=== PATIENT | male | born 1995 | race Caucasian/White ===

== ENCOUNTER 2020-04-05 19:28 | Emergency (ER) | payer MEDICAID ==
[2020-04-05] MEDS: cefTRIAXone 1 GM VIAL IM STA (20:11)
[2020-04-05] MEDS: KETOROLAC 60 MG/2 ML VIAL IM STA (20:12)
[2020-04-05] MEDS: LIDOCAINE 1% 2 ML VIAL MC ONE (20:12)
[2020-04-05] MEDS: DEXAMETHASONE 10 MG/ML VIAL PO STA (20:12)
--- NOTE | 2020-04-05 20:26 | ED Physician Documentation ---
History of Present Illness - Stated complaint Stated Complaint: MOUTH PAIN - Chief complaint Chief Complaint: Heent - History obtained from History obtained from: Patient - History of Present Illness Timing: Other (2 months ago) Pain level max: 9 Pain level now: 9 - Additonal information Additional information: 25-year-old male presents to the emergency department stating that he has had dental caries and poor dentition for several months. Over the past several days has noticed swelling in pain to the right side of his face. Has an appointment with his dentist next week. Is not currently on antibiotics. No fevers. No chills. No vomiting. Worse with eating and drinking. Nothing makes it better. Review of Systems Ten Systems: 10 systems reviewed and negative Constitutional: denies: Fever, Chills Ears: denies: Ear pain Nose: denies: Rhinorrhea / runny nose, Congestion Throat: denies: Sore throat Cardiac: denies: Chest pain / pressure Respiratory: denies: Dyspnea, Cough GI: denies: Abdominal Pain, Nausea, Vomiting, Diarrhea Skin: denies: Rash Musculoskeletal: denies: Neck pain, Back pain Neurologic: denies: Headache PD PAST MEDICAL HISTORY - Past Medical History Past Medical History: Yes Other Past Medical History: carpal tunnel jorge - Past Surgical History Past Surgical History: No - Present Medications Home Medications: Ambulatory Orders Medication Instructions Recorded Confirmed Amox/Clav 875/125 [Augmentin] 1 tab PO Q12H #20 tablet 04/05/20 HYDROcod/ACETAM 5/325 [[place] 5/325] 1 - 2 ea PO Q6H PRN #14 tablet 04/05/20 - Allergies Allergies/Adverse Reactions: Allergies Allergy/AdvReac Type Severity Reaction Status Date / Time No Known Drug Allergies Allergy Verified 04/05/20 19:34 - Social History Does the pt smoke?: Yes Smoking Status: Current every day smoker Does the pt drink ETOH?: Yes ETOH Use: Beer Does the pt have substance abuse?: Yes Substance Use and Type: Marijuana - Immunizations Immunizations are current?: No - POLST Patient has POLST: No PD ED PE NORMAL - Vitals Vital signs reviewed: Yes - General General: Alert and oriented X 3, No acute distress - HEENT HEENT: Moist mucous membranes - Neck Neck: Supple, no meningeal sign - Cardiac Cardiac: RRR - Respiratory Respiratory: No respiratory distress, Clear bilaterally - Derm Derm: Warm and dry - Neuro Neuro: Alert and oriented X 3 - Psych Psych: Normal mood, Normal affect PD ED PE EXPANDED - HEENT HEENT Visual: 1 - swelling, tenderness (Poor dentition throughout. No visible drainable abscess. Mild trismus. Normal phonation. Uvula midline. Mild swelling to the right cheek.) Results - Vitals Vitals: Vital Signs - 24 hr 04/05/20 04/05/20 19:31 19:42 Temperature 37.5 C 37.5 C Heart Rate 122 H 110 H Respiratory 18 18 Rate Blood Pressure 160/86 H 158/82 H O2 Saturation 96 98 Oxygen O2 Source Room air PD MEDICAL DECISION MAKING - ED course Complexity details: considered differential, d/w patient ED course: 25-year-old male presents to the emergency department with dental caries and dental infection. Does have mild trismus. The swelling is all on the right upper cheek. There is no drainable abscess. His uvula is midline. No evidence of peritonsillar or retropharyngeal abscess. Normal examination of the roof of the mouth. No swelling. Patient will be treated with IM Rocephin, dexamethasone, Toradol. Will place on antibiotics and pain medication for home. He will follow-up with his dentist tomorrow. Patient counseled regarding signs and symptoms for which I believe and urgent re-evaluation would be necessary. Patient with good understanding of and agreement to plan and is comfortable going home at this time This document was made in part using voice recognition software. While efforts are made to proofread this document, sound alike and grammatical errors may occur. Departure - Departure Disposition: 01 Home, Self Care Clinical Impression: Pain due to dental caries, Facial cellulitis Condition: Good Instructions: ED Infec Skin Cellulitis, ED Tooth Pain Follow-Up: your,dentist tomorrow [Other] Prescriptions: Amox/Clav 875/125 [Augmentin] 1 tab PO Q12H #20 tablet HYDROcod/ACETAM 5/325 [[place] 5/325] 1 - 2 ea PO Q6H PRN #14 tablet PRN Reason: Pain Comments: Drink plenty of fluids. Return if you worsen. It is important to follow-up with your dentist tomorrow. You need to be seen on an urgent basis by them. Do not drink alcohol or drive while on narcotic pain medicine. Note that many narcotic pain relievers also contain tylenol/acetaminophen. Please ensure that your total dose of acetaminophen from all sources does not exceed 3 grams (3000mg) per day. You may constipated on this medication, take a stool softener such as "Colace" twice a day while you are on it. Also recommend a [id number] laxative such as senna or MiraLAX any day that you do not have a bowel movement. If you received narcotic pain medication in the emergency department, do not drive or operate machinery for the next 24 hours.
[2020-04-05 20:42] VITALS: BP 142/80
== END 2020-04-05 20:41 | disposition home or self-care (01) ==
LOC: ED 19:28
DX: K02.9 Dental caries, unspecified (principal); K04.7 Periapical abscess without sinus; L03.211 Cellulitis of face; F17.200 Nicotine dependence, unspecified, uncomplicated
CPT/HCPCS: 96372; 99283; 99284